=== PATIENT | male | born 1980 | race Caucasian/White ===

== ENCOUNTER → 2018-11-13 | Outpatient (CLI) | payer OTHER ==
[~2018-11-13] MED LIST: OMNIPAQUE 350 MG/ML, 100ML BOTTLE ONE
== END | disposition home or self-care (01) ==
LOC: CFH 14:33
PROVIDERS: ATTEND Surgery
DX: C73 Malignant neoplasm of thyroid gland (principal)
CPT/HCPCS: 70492; Q9967

== ENCOUNTER 2018-12-14 10:08 | Inpatient (IN) | payer OTHER ==
[2018-12-13 10:39] LABS: BASOPHILS # (AUTO) 0.03 x10^3/uL (0-0.1); BASOPHILS % (AUTO) 1 % (0-1); EOSINOPHILS # (AUTO) 0.56 x10^3/uL (0-0.4); EOSINOPHILS % (AUTO) 9 % (1-7); LYMPHOCYTES # (AUTO) 1.51 x10^3/uL (1-3.4); LYMPHOCYTES % (AUTO) 25 % (22-44); MD NO; MEAN CORPUSCULAR HEMOGLOBIN 31.2 pg (27.5-34.5); MEAN CORPUSCULAR HGB CONC 34.3 g/dL (33.2-36.2); MEAN PLATELET VOLUME 9.1 fL (7.4-10.4); MONOCYTES # (AUTO) 0.52 x10^3/uL (0.2-0.8); MONOCYTES % (AUTO) 9 % (2-9); NEUTROPHILS # (AUTO) 3.49 x10^3/uL (1.8-6.8); NEUTROPHILS % (AUTO) 57 % (42-75); PLATELET COUNT 279 x10^3/uL (130-400); RED CELL DISTRIBUTION WIDTH 13.6 % (9.4-14.8)
[2018-12-13 10:50] LABS: ALBUMIN 3.8 g/dL (3.4-5.0); ANION GAP 3 mmol/L (5-15); CALCIUM 9.1 mg/dL (8.5-10.1); CHLORIDE 107 mmol/L (98-107)
[2018-12-13 10:56] LABS: ALANINE AMINOTRANSFERASE 43 U/L (12-78); ALKALINE PHOSPHATASE 89 U/L (45-117); BILIRUBIN,TOTAL 0.6 mg/dL (0.2-1.0); CREATININE 0.93 mg/dL (0.7-1.3); TOTAL PROTEIN 7.4 g/dL (6.4-8.2)
[~2018-12-14] VITALS: Ht 180.3 cm; Wt 82.3 kg
[~2018-12-14 10:08] MED LIST changes: +ESCI10TA10 PO; -OMNIPAQUE 350 MG/ML, 100ML BOTTLE ONE
[2018-12-14] MEDS ORDERED: ACETAMINOPHEN 500 MG TABLET PO ONE (10:30)
[2018-12-14] MEDS ORDERED: LACTATED RINGERS 1,000 ML IV SCH (10:32)
[2018-12-14] MEDS ORDERED: GABAPENTIN 300 MG CAPSULE PO ONE (11:00)
[2018-12-14] MEDS ORDERED: MIDAZOLAM 1 MG/ML, 2ML ONE (11:23)
[2018-12-14] MEDS ORDERED: FENTANYL PF 250 MCG/5ML ONE ×3 (11:23→13:08)
[2018-12-14] MEDS ORDERED: SUCCINYLCHOLINE 20 MG/ML, 10ML ONE (11:27)
[2018-12-14] MEDS ORDERED: GLYCOPYRROLATE 0.2MG/1ML, 5ML ONE (11:27)
[2018-12-14] MEDS ORDERED: ROCURONIUM 10MG/ML,5ML ONE (11:27)
[2018-12-14] MEDS ORDERED: PROPOFOL 10 MG/ML, 20ML ONE (11:27)
[2018-12-14] MEDS ORDERED: CEFAZOLIN 1,000 MG ONE ×3 (11:27→15:18)
[2018-12-14] MEDS ORDERED: NEOSTIGMINE 1 MG/ML, 10ML ONE (11:27)
[2018-12-14] MEDS ORDERED: LIDOCAINE 1%-EPI 1:100K, 20ML ONE (11:54)
[2018-12-14] MEDS ORDERED: BUPIVACAINE/PF-EPI 0.5% 1:200K ONE (11:54)
[2018-12-14] MEDS ORDERED: PROMETHAZINE 25 MG/ML, 1ML IV PRN (12:00)
[2018-12-14] MEDS ORDERED: ONDANSETRON ODT 8 MG PO PRN (12:00)
[2018-12-14] MEDS ORDERED: MORPHINE SULFATE 4 MG/ML, 1ML IVPush PRN (12:00)
[2018-12-14] MEDS ORDERED: PROMETHAZINE 25 MG/ML, 1ML IM PRN ×2 (12:00)
[2018-12-14] MEDS ORDERED: MEPERIDINE/PF 25MG/0.5ML IVPush PRN (12:00)
[2018-12-14] MEDS ORDERED: ONDANSETRON 2MG/ML, 2ML IV PRN ×2 (12:00→19:00)
[2018-12-14] MEDS ORDERED: PROMETHAZINE 25 MG SUPP PR PRN (12:00)
[2018-12-14] MEDS ORDERED: hydrALAzine 20 MG/ML, 1ML IV PRN (12:00)
[2018-12-14] MEDS ORDERED: OXYcodone 5 MG/5 ML ORAL.SOL UDC PO PRN (12:00)
[2018-12-14] MEDS ORDERED: FENTANYL PF 100 MCG/2ML IV PRN (12:00)
[2018-12-14] MEDS ORDERED: LABETALOL 5MG/ML, 20ML IV PRN (12:00)
[2018-12-14] MEDS ORDERED: PROMETHAZINE 12.5 MG SUPP PR PRN (12:00)
[2018-12-14] MEDS ORDERED: HYDROmorphone 2 MG/ML, 1ML IVPush PRN (12:00)
[2018-12-14] MEDS ORDERED: SODIUM CHLORIDE 0.9% PF 10ML ONE (15:18)
[2018-12-14] MEDS ORDERED: BACITRACIN OINT 500U/GM, 15 GM ONE (16:36)
[2018-12-14] MEDS ORDERED: OXYcodone 5 MG/5 ML ORAL.SOL UDC ONE (17:31)
[2018-12-14] MEDS ORDERED: FENTANYL PF 100 MCG/2ML ONE (17:31)
[2018-12-14] MEDS ORDERED: HYDROcodone/APAP 5/325 TABLET PO PRN (19:00)
[2018-12-14] MEDS ORDERED: morphine SULFATE 10 MG/ML, 1ML IV PRN (19:00)
[2018-12-14 19:02] VITALS: BP 110/67
[2018-12-14] MEDS: LACTATED RINGERS 1,000 ML IV SCH (19:07)
[2018-12-14 19:31] LABS: ALBUMIN 3.5 g/dL (3.4-5.0); CALCIUM 8.2 mg/dL (8.5-10.1)
[2018-12-15 01:05] LABS: ALBUMIN 3.2 g/dL (3.4-5.0); CALCIUM 7.9 mg/dL (8.5-10.1)
[2018-12-15 01:21] VITALS: BP 110/67
[2018-12-15 06:31] LABS: ALBUMIN 3.3 g/dL (3.4-5.0)
[2018-12-15 07:07] VITALS: BP 114/67
[2018-12-15] MEDS: LACTATED RINGERS 1,000 ML IV SCH (09:14)
[2018-12-15] MEDS: CALCIUM CARBONATE 500 MG TAB.CHEW PO SCH ×2 (10:14→11:16)
[2018-12-15 12:16] LABS: ALBUMIN 3.4 g/dL (3.4-5.0); CALCIUM 8.3 mg/dL (8.5-10.1)
[2018-12-15] MEDS ORDERED: LEVO137T2 PO (13:40)
[2018-12-15] MEDS ORDERED: HYDR-3237 PO (13:40)
[2018-12-15] MEDS ORDERED: CALC200T24 PO (13:40)
== END 2018-12-15 14:21 | disposition home or self-care (01) | DRG 626 ==
LOC: OUT 10:08 → EDSTATUS 12:30 → 4NOR 18:05 → OUT 18:29 → 4NOR 18:29 → DCLOUNGE 12-15 14:10
PROVIDERS: ADMIT Student in an Organized Health Care Education/Training Program; ATTEND Student in an Organized Health Care Education/Training Program
PROC: 0GTJ0ZZ Resection of Thyroid Gland Isthmus, Open Approach (ICD-10-PCS; 2018-12-14)
PROC: 0GTK0ZZ Resection of Thyroid Gland, Open Approach (ICD-10-PCS; principal; 2018-12-14 12:30)
PROC: 07T10ZZ Resection of Right Neck Lymphatic, Open Approach (ICD-10-PCS; 2018-12-14 12:30)
DX: C73 Malignant neoplasm of thyroid gland (principal); C77.0 Secondary and unspecified malignant neoplasm of lymph nodes of head, face and neck; F32.9 Major depressive disorder, single episode, unspecified; E78.00 Pure hypercholesterolemia, unspecified; Z82.49 Family history of ischemic heart disease and other diseases of the circulatory system; Z88.8 Allergy status to other drugs, medicaments and biological substances
CPT/HCPCS: 36415; 80053; 82040; 82310; 85025; 86850; 86900; 88305; 88307; 93005; C1729; G0378; J0690; J2250; J2704; J2710; J3010; J3490; J0330; J7120

== ENCOUNTER 2019-03-07 08:35 | Outpatient (CLI) | payer OTHER ==
[~2019-03-07 08:35] MED LIST changes: +CALC200T24 PO; +HYDR-3237 PO; +LEVO137T2 PO
[2019-03-07] MEDS ORDERED: OMNIPAQUE 350 MG/ML, 150 ML BOTTLE ONE (09:15)
== END 2019-03-07 23:59 | disposition home or self-care (01) ==
LOC: CFH 08:35
PROVIDERS: ATTEND Student in an Organized Health Care Education/Training Program
DX: C76.1 Malignant neoplasm of thorax (principal); C73 Malignant neoplasm of thyroid gland; R91.8 Other nonspecific abnormal finding of lung field; E04.1 Nontoxic single thyroid nodule
CPT/HCPCS: 70491; 71260; Q9967

== ENCOUNTER 2019-03-15 09:00 | Outpatient (CLI) | payer OTHER | END 2019-03-15 23:59 | disposition home or self-care (01) | LOC: RAD 09:00 | PROVIDERS: ATTEND Student in an Organized Health Care Education/Training Program | DX: R59.1 Generalized enlarged lymph nodes (principal) | CPT/HCPCS: 10005; 76942; 88173 ==

== ENCOUNTER 2019-06-10 08:38 | Outpatient (CLI) | payer OTHER | END 2019-06-12 23:59 | disposition home or self-care (01) | LOC: RAD 08:38 | PROVIDERS: ATTEND Internal Medicine Endocrinology, Diabetes & Metabolism | DX: C73 Malignant neoplasm of thyroid gland (principal); F32.9 Major depressive disorder, single episode, unspecified; E78.5 Hyperlipidemia, unspecified; Z88.1 Allergy status to other antibiotic agents | CPT/HCPCS: 79005; 96372; A9517; J3240 ==

== ENCOUNTER 2019-06-11 09:07 | Outpatient (CLI) | payer OTHER | END 2019-06-11 23:59 | disposition home or self-care (01) | LOC: RAD 09:07 | PROVIDERS: ATTEND Nurse Practitioner Family | DX: Z02.9 Encounter for administrative examinations, unspecified (principal) | CPT/HCPCS: J3240 ==

== ENCOUNTER 2019-06-28 07:18 | Outpatient (CLI) | payer OTHER | END 2019-06-28 23:59 | disposition home or self-care (01) | LOC: RAD 07:18 | PROVIDERS: ATTEND Nurse Practitioner Family | DX: C73 Malignant neoplasm of thyroid gland (principal) | CPT/HCPCS: 78018 ==